=== PATIENT | female | born 1985 | race African-American/Black ===

== ENCOUNTER 2017-12-03 14:09 | Emergency (ER) | payer BC ==
[~2017-12-03] VITALS: Ht 188 cm; Wt 98.9 kg
[2017-12-03] MEDS ORDERED: Acetaminophen 500mg (ES) tab ORAL ONE (15:00)
--- NOTE | 2017-12-03 15:25 | Emergency Room Report ---
History of Present Illness General Chief Complaint: Lower Extremity Injury Source: Patient Present Illness HPI 32-year-old female patient presents ER complaining of left knee pain for the past 2 weeks. Reports pain worsened the past 2 days after kneeling on her left knee while urinating outside. Reports 2 weeks ago that she was dancing and suddenly felt her knee gave out. reports that her knee became swollen at that time, has since decreased. Reports went to urgent care at that time was given prednisone and ibuprofen for pain symptoms. Reports has been walking with a limp since that time. Reports symptoms have primarily resolved until she kneeled down 2 days ago. Denies any imaging performed at urgent care. requesting CT of the he performed. States she has follow-up appointment with ortho doctor but not until the end of the month. Reports pain with full extension of knee. Allergies: Coded Allergies: SULFA (SULFONAMIDE ANTIBIOTICS) (Unverified Allergy, Unknown, 12/03/17) Uncoded Allergies: SULFA (Allergy, Unknown, 12/03/17) Patient History Past Medical History: see triage record Last Menstrual Period: IUD Now: No : 3 Para: 1 Reviewed Nursing Documentation: PMH: Agreed; PSxH: Agreed Nursing Documentation-PMH Past Medical History: No Stated History Review of Systems All Other Systems: negative except mentioned in HPI Physical Exam Vital Signs Date Time Temp Pulse Resp B/P (MAP) Pulse Ox O2 Delivery O2 Flow Rate FiO2 12/03/17 14:36 98.8 100 20 137/80 97 Room Air 98.8 Sp02 EP Interpretation: reviewed, normal General Appearance: well appearing, no apparent distress, alert, GCS 15, non- toxic Head: normocephalic, atraumatic Eyes: bilateral eye normal inspection, bilateral eye PERRL ENT: hearing grossly normal, normal pharynx, no angioedema, normal voice, uvula midline, moist mucus membranes Neck: full range of motion Respiratory: lungs clear, normal breath sounds, no rhonchi, no respiratory distress, no accessory muscle use, no wheezing, speaking full sentences Cardiovascular #1: regular rate, rhythm, no edema Cardiovascular #2: 2+ dorsalis pedis (R), 2+ dorsalis pedis (L) Musculoskeletal: back normal, digits/nails normal, normal range of motion, no calf tenderness, swelling - mild edema, no erythema, other - negative anterior and posterior drawer, no laxity with varus and valgus stress, walking with limp , no deformity, tender - superior border of left knee Neurologic: alert, oriented x3, responsive, motor strength/tone normal, sensory intact Psychiatric: mood/affect normal Medical Decision Making PA Attjoieation Dr. Riley is my supervising Physician whom patient management has been discussed with. Diagnostic Impression: Primary Impression: Left knee pain ER Course Pt. presents to the ED c/o left knee pain. Ddx considered but are not limited to fracture, sprain, strain, contusion, dislocation. No erythema, no warmth to touch, no fever, nontoxic appearing, low suspicion for septic joint. No deformity of patella, low suspicion for dislocation. Vital signs: are WNL, pt. is afebrile Ordered X-ray and pain medication. ER COURSE Provided with pain medication. An X-ray of the left knee was ordered, results show no acute trauma, no effusion , per the preliminary reading. Patient with CD copy of image results. informed patient that symptoms likely related to stiffness from decreased use versus possible ligament or meniscal injury. informed patient to follow up with PCP and request MRI/CT imaging. RAISA wrap was applied to the left knee was checked afterwards by me showing good alignment and support with distal neurovascular functioning intact. Patient declined crutches. Patient instructed on RICE method: rest, ice, compression, elevation. Patient instructed to WBAT. patient requesting note states she can return to work. 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 Informed patient that she is able to return to work, should elevate her leg when at rest. Patient advised against heavy strenuous exercise until symptoms resolve or cleared for activity by PCP or orthopedist. Perform range of motion exercises to prevent stiffness and decreased mobility. Followup with primary care provider for medical clearance to return to activities. Discuss referral to ortho/pain management/PT as needed. Discuss further imaging with MRI/CT as needed. DISCHARGE: -Rx provided for Tylenol for pain symptoms. At this time pt. is stable for d/c to home. Patient is resting comfortably, in no acute distress, nontoxic appearing, talking without difficulty. Will provide printed patient care instructions, and any necessary prescriptions. Patient instructed to follow with primary care provider in 3 - 5 days and to request further orthopedic follow-up. Care plan and follow up instructions have been discussed with the patient prior to discharge. Take medications as directed. Patient questions asked and answered. Patient reports understanding and agreement to treatment plan. ER precautions given, patient instructed to return to ER immediately for any new or worsening of symptoms. - Please note that this Emergency Department Report was dictated using [employer] intern technology software, occasionally this can lead to erroneous entry secondary to interpretation by the dictation equipment. Other X-Ray Diagnostic Results Other X-Ray Diagnostic Results : X-Ray ordered: left knee # of Views/Limited Vs Complete: 3 View Indication: Pain EP Interpretation: Yes PA Xray: Interpretation reviewed, by supervising MD, and agrees with findings. Interpretation: no dislocation, no soft tissue swelling, no fractures Impression: No acute disease COURTNEY Scribe Text Thierno Feng PA-C Last Vital Signs Date Time Temp Pulse Resp B/P (MAP) Pulse Ox O2 Delivery O2 Flow Rate FiO2 12/03/17 15:12 98.8 12/03/17 14:36 100 20 137/80 97 Room Air Disposition: HOME, SELF-CARE Condition: Stable Scripts Acetaminophen* (TYLENOL EXTRA STRENGTH*) 500 Mg Tablet 500 MG ORAL Q8H PRN for Prn Headache/Temp > 101, #30 TAB 0 Refills Prov: Dave Feng 12/03/17 Patient Instructions: Knee Sprain Additional Instructions: Patient instructed to follow up with primary care provider and discuss further referral to orthopedics. Discuss further imaging at that time. Patient instructed on RICE method: rest, ice, compression, elevation. Elevate leg when at rest. Patient instructed to WBAT. Patient instructed to be weightbearing as tolerated , able to perform normal activities and duties at work. Take medications as directed. Patient questions asked and answered. ER precautions given, patient instructed to return to ER immediately for any new or worsening of symptoms. Dave Feng Dec 03, 2017 15:25
[2017-12-03] MEDS ORDERED: TYLENOL EXTRA500 MG ORAL (16:25)
--- NOTE | 2017-12-03 16:27 | Diagnostic Imaging Report ---
Indications: Reason For Exam: PAIN Technique: Three views of the left knee Comparison: None Findings: No acute fractures. No dislocations. Joint spaces are preserved. No radiopaque foreign body. Normal mineralization. Impression: No acute process
[2017-12-03 16:45] VITALS: BP 137/80
== END 2017-12-03 16:55 | disposition home or self-care (01) ==
LOC: EMR 15:18
DX: M25.562 Pain in left knee (principal); Z88.2 Allergy status to sulfonamides
CPT/HCPCS: 99283